=== PATIENT | female | born 1995 | race Caucasian/White ===

== ENCOUNTER 2017-03-23 16:40 | Emergency (ER) | payer OTHER ==
[~2017-03-23] VITALS: Ht 157.5 cm; Wt 66.1 kg
[~2017-03-23 16:40] MED LIST: AMPH15CA7 PO; BCPILLS PO; ESCI10TA17 PO; IBUP-103 PO
[2017-03-23 16:56] VITALS: TEMP 37.2; Ht 157.5 cm; Wt 66.1 kg
[2017-03-23] MEDS ORDERED: SODIUM CHLORIDE 0.9% 1000ML 1,000 ML IV ONE (18:15)
[2017-03-23 18:42] LABS: BASO % 0.2 %; BASO ABS # 0.02 K/uL (0-0.2); EOS % 0.7 %; EOS ABS # 0.08 K/uL (0-0.5); HEMATOCRIT 38.9 % (37-47); HEMOGLOBIN 14.2 g/dL (12.0-16.0); IG# 0.02 K/uL (0.00-0.02); LYMPH % 20.6 %; LYMPH ABS # 2.33 K/uL (1.2-3.4); MEAN CELL VOLUME 82.4 fL (80-100); MEAN CORPUSCULAR HEMOGLOBIN 30.1 pg (25-34); MEAN CORPUSCULAR HGB CONC 36.5 g/dl (32-36); MONO % 9.1 %; MONO ABS # 1.03 K/uL (0.11-0.59); NEUT % 69.2 %; NEUT ABS # 7.85 K/uL (1.4-6.5); PLATELET COUNT 270 K/uL (130-400); RED CELL DISTRIBUTION WIDTH CV 12.8 % (11.5-14.5); RED CELL DISTRIBUTION WIDTH SD 38.8 fL (36.4-46.3); WHITE BLOOD COUNT 11.33 K/uL (4.8-10.8)
[2017-03-23 19:00] LABS: ALBUMIN 3.7 gm/dl (3.4-5.0); CALCIUM 8.9 mg/dl (8.5-10.1); CREATININE 0.66 mg/dl (0.60-1.20); POTASSIUM 3.8 mmol/L (3.5-5.1)
[2017-03-23 19:03] LABS: TOTAL PROTEIN 7.5 gm/dl (6.4-8.2)
--- NOTE | 2017-03-23 19:27 | DIAGNOSTIC IMAGING REPORT ---
ULTRASOUND OF THE PELVIS CLINICAL HISTORY: Vaginal bleeding. Pelvic pain. . COMPARISON STUDY: Pelvic CT dated 07/20/2015. TECHNIQUE: Real-time, grayscale, and color flow sonography of the pelvis is performed both transabdominally and endovaginally. Images are reviewed in the transverse and longitudinal planes. FINDINGS: Uterus: The gravid uterus is normal in size and echotexture, measuring 8 cm in length. Gestation: There is a single intrauterine gestation. The crown-rump length measures 0.91 cm, corresponding to estimated age of 6 weeks 6 days. The mean gestational sac diameter measures 1.38 cm, corresponding to estimated age of 5 weeks 4 days. No cardiac activity was clearly seen. A yolk sac is identified. Ovaries: The ovaries are normal in size and morphology. The right ovary measures 4.0 x 2.1 x 3.3 cm and the left ovary measures 3.4 x 1.5 x 2.2 cm. Normal Doppler waveforms are shown within both ovaries. Pelvis: There is no free fluid in the cul-de-sac. No concerning adnexal lesion is seen. IMPRESSION: 1. There is a single intrauterine gestation with with an estimated age of 6 weeks 6 days by crown-rump length measurement. This is discordant with the mean gestational sac diameter. 2. No cardiac activity was clearly identified. Although this may be due to early gestational age, gestational demise is not excluded. Close clinical, laboratory, and sonographic follow-up is recommended. 3. No adnexal lesion is seen. Electronically signed by: Jericho Haywood M.D. 03/23/2017 7:26 PM Dictated Date/Time: 03/23/2017 7:22 PM
[2017-03-23 21:40] VITALS: BP 105/63; PULSE 76; O2SAT 100
--- NOTE | 2017-03-24 16:12 | EMERGENCY ROOM VISIT NOTE ---
History First contact with patient: 17:47 Chief Complaint: ED VAG BLEEDING Stated Complaint: WITH EXCESSIVE BLEEDING History of Present Illness The patient is a 21 year old female who presents to the Emergency Room with complaints of abdominal pain and vaginal bleeding that started yesterday. The patient states that she did soak through 2 or 3 pads yesterday evening. She states that recently she did have a positive at-home test. This would be her first , and she has not followed with [facility]. Based on her last menstrual cycle, which is irregular, she estimates being 5-7 weeks . The patient has not had fever or chills. No nausea or vomiting. She does not have chest pain. No previous abdominal surgeries. She considers herself otherwise usually healthy. Her bleeding and pain has decreased today, but still persists. She rates her current discomfort a 5/10. Review of Systems More than 10 systems were reviewed and otherwise negative with the exception of history of present illness. Past Medical/Surgical History Medical Problems: (1) Asthma (2) Benign Maulik Pituitary (3) Chest pain (4) Gastroesophageal reflux disease (5) Headache (6) Hip pain (7) Hip strain (8) Laceration of forearm, left (9) Migraine (10) Otitis externa (11) Polycystic Ovaries (12) Right flank pain (13) Shortness of breath (14) Subluxation of left patella (15) UTI (urinary tract infection) (16) Work related injury Surgical Problems: (1) No significant past surgical history Family History FH: cancer FH: gallbladder disease FH: heart disease FH: hypertension FH: kidney disease Social History Smoking Status: Current Every Day Smoker Alcohol Use: none Drug Use: none Marital Status: single Housing Status: lives with family Occupation Status: employed Current/Historical Medications Scheduled Amphetamine-Dextroamphetamine 15MG (Adderall Xr 15MG), 15 MG PO DAILY Scheduled PRN Ibuprofen Tab (Advil), 400-600 MG PO Q6H PRN for Pain or Fever Physical Exam Vital Signs Date Time Temp Pulse Resp B/P (MAP) Pulse Ox O2 Delivery O2 Flow Rate FiO2 03/23/17 21:40 76 18 105/63 100 03/23/17 20:04 77 15 109/57 98 Room Air 03/23/17 16:56 37.2 112 16 124/71 100 Room Air Physical Exam VITALS: Vitals are noted on the nurse's note and reviewed by myself. Vital signs with tachycardia GENERAL: Well-developed, well-nourished, white female, who appears uncomfortable but stable HEART: Regular rate and rhythm without murmurs gallops or rubs. LUNGS: Clear to auscultation bilaterally without wheezes, rales or rhonchi. No retractions or accessory muscle use. ABDOMEN: Positive normal bowel sounds x 4. Soft with bilateral lower abdominal tenderness on palpation. No CVA tenderness. : Examination was performed in the presence of female nurse respiratory therapy manager. Normal -appearing external female genitalia. Scant red blood appreciated within the vaginal vault. Cervix was identified as appearing normal with a closed os. There is slight red blood from the os. No cervical motion tenderness. MUSCULOSKELETAL: No muscle atrophy, erythema, or edema noted. Full range of motion without joint tenderness in all extremities. Medical Decision & Procedures ER Provider Diagnostic Interpretation: ULTRASOUND OF THE PELVIS CLINICAL HISTORY: Vaginal bleeding. Pelvic pain. . COMPARISON STUDY: Pelvic CT dated 07/20/2015. TECHNIQUE: Real-time, grayscale, and color flow sonography of the pelvis is performed both transabdominally and endovaginally. Images are reviewed in the transverse and longitudinal planes. FINDINGS: Uterus: The gravid uterus is normal in size and echotexture, measuring 8 cm in length. Gestation: There is a single intrauterine gestation. The crown-rump length measures 0.91 cm, corresponding to estimated age of 6 weeks 6 days. The mean gestational sac diameter measures 1.38 cm, corresponding to estimated age of 5 weeks 4 days. No cardiac activity was clearly seen. A yolk sac is identified. Ovaries: The ovaries are normal in size and morphology. The right ovary measures 4.0 x 2.1 x 3.3 cm and the left ovary measures 3.4 x 1.5 x 2.2 cm. Normal Doppler waveforms are shown within both ovaries. Pelvis: There is no free fluid in the cul-de-sac. No concerning adnexal lesion is seen. IMPRESSION: 1. There is a single intrauterine gestation with with an estimated age of 6 weeks 6 days by crown-rump length measurement. This is discordant with the mean gestational sac diameter. 2. No cardiac activity was clearly identified. Although this may be due to early gestational age, gestational demise is not excluded. Close clinical, laboratory, and sonographic follow-up is recommended. 3. No adnexal lesion is seen. Laboratory Results 03/23/17 18:14 Red Blood Count 4.72, Mean Corpuscular Volume 82.4, Mean Corpuscular Hemoglobin 30.1, Mean Corpuscular Hemoglobin Concent 36.5, Mean Platelet Volume 10.0, Neutrophils (%) (Auto) 69.2, Lymphocytes (%) (Auto) 20.6, Monocytes (%) (Auto) 9.1, Eosinophils (%) (Auto) 0.7, Basophils (%) (Auto) 0.2, Neutrophils # (Auto) 7.85, Lymphocytes # (Auto) 2.33, Monocytes # (Auto) 1.03, Eosinophils # (Auto) 0.08, Basophils # (Auto) 0.02 03/23/17 18:14 Test 03/23/17 18:14 White Blood Count 11.33 K/uL (4.8-10.8) Red Blood Count 4.72 M/uL (4.2-5.4) Hemoglobin 14.2 g/dL (12.0-16.0) Hematocrit 38.9 % (37-47) Mean Corpuscular Volume 82.4 fL (80-100) Mean Corpuscular Hemoglobin 30.1 pg (25-34) Mean Corpuscular Hemoglobin Concent 36.5 g/dl (32-36) Platelet Count 270 K/uL (130-400) Mean Platelet Volume 10.0 fL (7.4-10.4) Neutrophils (%) (Auto) 69.2 % Lymphocytes (%) (Auto) 20.6 % Monocytes (%) (Auto) 9.1 % Eosinophils (%) (Auto) 0.7 % Basophils (%) (Auto) 0.2 % Neutrophils # (Auto) 7.85 K/uL (1.4-6.5) Lymphocytes # (Auto) 2.33 K/uL (1.2-3.4) Monocytes # (Auto) 1.03 K/uL (0.11-0.59) Eosinophils # (Auto) 0.08 K/uL (0-0.5) Basophils # (Auto) 0.02 K/uL (0-0.2) RDW Standard Deviation 38.8 fL (36.4-46.3) RDW Coefficient of Variation 12.8 % (11.5-14.5) Immature Granulocyte % (Auto) 0.2 % Immature Granulocyte # (Auto) 0.02 K/uL (0.00-0.02) Anion Gap 6.0 mmol/L (3-11) Est Creatinine Clear Calc Drug Dose 122.3 ml/min Estimated GFR () 148.4 Estimated GFR (Non- 128.1 BUN/Creatinine Ratio 19.8 (10-20) Calcium Level 8.9 mg/dl (8.5-10.1) Total Bilirubin 0.2 mg/dl (0.2-1) Aspartate Amino Transf (AST/SGOT) 9 U/L (15-37) Alanine Aminotransferase (ALT/SGPT) 15 U/L (12-78) Alkaline Phosphatase 49 U/L (45-117) Total Protein 7.5 gm/dl (6.4-8.2) Albumin 3.7 gm/dl (3.4-5.0) Globulin 3.8 gm/dl (2.5-4.0) Albumin/Globulin Ratio 1.0 (0.9-2) Human Chorionic Gonadotropin, Quant 26936 mIU/mL Medications Administered Medications (Trade) Dose Ordered Sig/Bharati Route Start Time Stop Time Status Last Admin Dose Admin Sodium Chloride 1,000 ml @ 999 mls/hr Q1H1M ONCE IV 03/23/17 18:15 03/23/17 19:15 DC 03/23/17 18:26 999 MLS/HR ED Course Physical exam and history were performed. Nursing notes, EMR, and Medication List were personally reviewed. Patient appears to have vaginal bleeding and abdominal pain in the context of . Patient was seen rapidly upon her presentation to the ER room, where she is mildly tachycardic. Pelvic exam was performed and she does have a very small amount of blood in the vaginal vault with a closed os. IV access was established and labs were obtained. She was hydrated with normal saline. She was sent to ultrasound. The patient smoked as above and was reviewed. She does not have a significantly elevated white blood cell count, gross anemia, bandemia, or significant electrolyte imbalance. Her hCG quantitative does correlate with a roughly 6+ week . Her ultrasound shows an intrauterine of roughly 6 weeks 6 days. The patient is blood type O-positive. I had a lengthy discussion with patient regarding her diagnostic findings today. At this time she appears to have a viable , however we were not able to definitively find a heart rate which is moderately concerning. The patient has not yet followed with [facility], but would like to see the [facility] group. The patient will be referred to their care she will need repeat hCG and ultrasound testing. The patient was asked to return to the ER with any new, worsening, or concerning symptoms. She voiced understanding and rated her discomfort a 0/10 at the time of departure. The chart was completed utilizing [employer] Speech Voice Recognition Software. Grammatical errors, random word insertions, pronoun errors, and incomplete sentences are an occasional consequence of this system due to software limitations, ambient noise, and hardware issues. Any formal questions or concerns about the content, text, or information contained within the body of this dictation should be directly addressed to the provider for clarification. . Medical Decision Differential diagnosis: Etiologies such as ectopic , dysfunction uterine bleeding, bleeding dyscrasia, trauma, infection, as well as others were entertained. Impression Primary Impression: Vaginal bleeding in Departure Information Dispostion Home / Self-Care Condition GOOD Referrals Sigrid Pack M.D. Forms HOME CARE DOCUMENTATION FORM, IMPORTANT VISIT INFORMATION Patient Instructions [employer] Additional Instructions You were seen and evaluated today on an emergency basis only. This is not a substitute for, or an effort to provide, complete comprehensive medical care. It is not possible to recognize and treat all injuries or illnesses in a single emergency department visit. For this reason it is recommended that you followup with [facility], Dr. Pack's office, by telephone tomorrow to make a follow up appointment. Drink plenty of fluids and remain well hydrated. You may do Tylenol 1000 mg every 6-8 hours as needed for pain control You are welcome to return to the emergency department anytime with new, worsening, or concerning symptoms.
== END 2017-03-23 21:41 | disposition home or self-care (01) ==
LOC: C.EDB 16:42 → C.EDD 21:41
DX: O20.9 Hemorrhage in early pregnancy, unspecified (principal); F17.200 Nicotine dependence, unspecified, uncomplicated

== ENCOUNTER → 2017-04-20 | Outpatient (CLI) | payer OTHER ==
[~2017-04-20] MED LIST changes: -BCPILLS PO; -ESCI10TA17 PO
== END | disposition home or self-care (01) ==
LOC: C.LABSPEC 12:10
PROVIDERS: ATTEND Obstetrics & Gynecology
DX: Z34.01 Encounter for supervision of normal first pregnancy, first trimester (principal)